=== PATIENT | male | born 1960 | race African-American/Black ===

== ENCOUNTER 2021-06-09 07:22 | Emergency (ER) | payer OTHER ==
[2021-06-09 07:49] VITALS: BP 123/81; PULSE 89; TEMP 97; BMI 19.8
[2021-06-09] MEDS ORDERED: ACETAMINOPHEN 325 MG TABLET (FP) PO ONE (08:18)
[2021-06-09] MEDS ORDERED: ACETAMINOPHEN 325 MG TABLET (FP) ONE (08:35)
== END 2021-06-09 09:44 | disposition home or self-care (01) ==
LOC: JER 07:22
DX: M54.89 Other dorsalgia (principal)
CPT/HCPCS: 72100-TC-FY; 99283-25